=== PATIENT | male | born 1970 ===

== ENCOUNTER 2024-05-07 18:57 | Emergency (ER) | payer OTHER ==
[~2024-05-07] VITALS: Ht 180.3 cm; Wt 88.2 kg
[2024-05-07 19:30] VITALS: BP 130/77; PULSE 71; RESP 20; TEMP 98.4; O2SAT 97
[2024-05-07 20:07] LABS: BASOPHILS % (AUTO) 0.3 % (0.0-2.0); EOSINOPHILS % (AUTO) 4.6 % (1.0-6.0); HEMATOCRIT 46.3 % (41-53); HEMOGLOBIN 15.5 g/dL (13.5-17.5); LYMPHOCYTES # (AUTO) 1.6 K/uL (1.0-4.8); MEAN CORPUSCULAR HEMOGLOBIN 30.4 pg (26.0-34.0); MEAN CORPUSCULAR HGB CONC 33.5 G/dL (31.0-37.0); MEAN CORPUSCULAR VOLUME 91 fL (80-100); MONOCYTES # (AUTO) 0.6 K/uL (0.1-1.0); MONOCYTES % (AUTO) 8.9 % (2.0-9.0); NEUTROPHILS # (AUTO) 3.9 K/uL (1.8-7.7); NEUTROPHILS % (AUTO) 61.2 % (40.0-70.0); PLATELET COUNT (AUTO) 185 K/uL (150-450); RED BLOOD CELL COUNT(AUTO) 5.09 MIL/uL (4.50-5.90); RED CELL DISTRIBUTION WIDTH 13.8 % (11.5-14.5); WHITE BLOOD COUNT (AUTO) 6.4 K/uL (4.5-11.0)
[2024-05-07 20:21] LABS: ANION GAP 9 mmol/L (8-16); CALCIUM, TOTAL 9.1 mg/dL (8.8-10.5); CARBON DIOXIDE 29 mmol/L (22-29); CHLORIDE 106 mmol/L (98-107); CREATININE 1.21 mg/dL (0.60-1.30); GLOMERULAR FILTR. RATE CALC > 60 mL/min (>60); GLUCOSE,RANDOM 81 mg/dL (70-110); POTASSIUM 3.8 mmol/L (3.5-5.1); SODIUM SERUM 144 mmol/L (136-145); UREA NITROGEN, BLOOD 23 mg/dL (7-18)
[2024-05-07 20:27] LABS: B-TYPE NATRIURETIC PEPTIDE 6 pg/mL (0-100); TROPONIN I-HIGH SENSITIVITY 6 ng/L (<76)
[2024-05-07 20:42] LABS: CREATINE KINASE, TOTAL ONLY 104 U/L (39-308)
[2024-05-07 22:58] LABS: APPEARANCE,URINE CLEAR (CLEAR); BILIRUBIN,URINE NEGATIVE (NEGATIVE); COLOR,URINE LIGHT YELLOW (YELLOW); GLUCOSE, URINE (UA) NEGATIVE (NEGATIVE); KETONES,URINE NEGATIVE (NEGATIVE); LEUKOCYTE ESTERASE ,URINE NEGATIVE (NEGATIVE); NITRATE,URINE NEGATIVE (NEGATIVE); OCCULT BLOOD,URINE NEGATIVE (NEGATIVE); PROTEIN,URINE NEGATIVE (NEGATIVE); SPECIFIC GRAVITIY, URINE 1.033 (1.003-1.030); UROBILINOGEN,URINE <=1.0 mg/dL (<=1.0)
[2024-05-07] MEDS: ASPIRIN 325 MG TABLET PO ONE (23:18)
[2024-05-07 23:41] LABS: TROPONIN I-HIGH SENSITIVITY 10 ng/L (<76)
[2024-05-08] MEDS ORDERED: ASPI325T87 PO
== END 2024-05-08 00:21 | disposition home or self-care (01) ==
LOC: EMS 18:57
DX: R07.89 Other chest pain (principal); Z87.19 Personal history of other diseases of the digestive system; Z88.2 Allergy status to sulfonamides
CPT/HCPCS: 71045; 80048; 81003; 82550; 83690; 83880; 84484; 85025; 93005; 99285; 36415-L1; 36415-TC